=== PATIENT | female | born 1995 | race Caucasian/White ===

== ENCOUNTER 2019-10-09 01:46 | Emergency (ER) | payer MEDICAID ==
[~2019-10-09] VITALS: Ht 149.9 cm; Wt 59.0 kg
[2019-10-09 03:34] VITALS: BP 125/82
== END 2019-10-09 03:34 | disposition home or self-care (01) ==
LOC: ER 02:32
DX: R06.02 Shortness of breath (principal); R05 Cough; R03.0 Elevated blood-pressure reading, without diagnosis of hypertension
CPT/HCPCS: 71045; 81025; 93005; 99283